=== PATIENT | female | born 1985 | race African-American/Black ===

== ENCOUNTER 2016-11-02 08:29 | Emergency (ER) | payer MEDICAID ==
[~2016-11-02 08:29] MED LIST: NO MEDICATIONS
== END 2016-11-02 09:12 | disposition home or self-care (01) ==
LOC: CED 08:29
DX: J02.0 Streptococcal pharyngitis (principal); K12.2 Cellulitis and abscess of mouth; F17.200 Nicotine dependence, unspecified, uncomplicated
CPT/HCPCS: 87880; 96372; 96374; 96375; 99284; J0561; J1100; J1200